=== PATIENT | male | born 1960 | race Two or more races ===

== ENCOUNTER 2024-12-07 13:07 | Day surgery (SDC) | payer MEDICARE, SELFPAY ==
[2024-12-05 14:29] VITALS: BMI 27.0
[2024-12-07 13:30] VITALS: BP 131/81; PULSE 58; RESP 17; TEMP 36.4; O2SAT 95
[2024-12-07] MEDS: LACTATED RINGERS 1000ML 1,000 ML 50 ML IV (13:39)
--- NOTE | 2024-12-07 13:39 | P.HP_ITS ---
History of Present Illness *Admission Date: 12/07/24 *Reason for visit:: Family history/history of colon polyps and present history of prostate canc *History of present illness: Mr. Andino is a 64-year-old gentleman who is here for surveillance colonoscopy. He does have a personal history of colon polyps and a family history of colon cancer (mother). He was more recently diagnosed with prostate cancer and is due for CyberKnife treatment. Medical oncology and radiation oncology recommended that he had the surveillance colonoscopy presently and would be due at 5 years of this year. The examination is deemed medically necessary for surveillance colonoscopy. The patient has been seen, interviewed and examined prior to the procedure by both myself and the anesthesia provider. [facility] Disclaimer: The information contained in this section may have been updated after the patient was seen, as this information can be updated by other users. Medical History (Updated 12/07/24 @ 13:51 by Scar Felipe II, MD) Arthropathy of left knee History of cataract Prostate cancer Gout HLD (hyperlipidemia) HTN (hypertension) Surgical History History of Achilles tendon repair History of colonoscopy Family History Other Cancer of kidney Colon cancer Family history of cancer Lung cancer Social History Smoking Status: Former smoker alcohol intake: current current occupational status: retired Travel in the last 8 weeks?: None Have you lived/traveled outside [place] in past 30 days?: No Contact w/someone who lives/traveled outside US past 30 days?: No Exposure to someone with infectious disease in past 14 days?: No Do you have a fever (greater than 100.4 F or 38 C)?: No Have you tested positive for COVID-19?: No Exposed to someone with COVID-19 in past 14 days?: No Do you have a sore throat?: No Do you have a cough?: No Do you have any weakness?: No Are you experiencing any nausea/vomitting?: No Do you have any diarrhea?: No Are you experiencing any unusual bleeding?: No Do you have any muscle aches/pain?: No Do you have any abdominal pain?: No Are you experiencing loss of taste or smell?: No Review of Systems Review of Systems Review of systems (narrative): Negative *Cardiovascular Comments: Negative *Gastrointestinal Comments: Negative *Genitourinary Comments: Negative *Musculoskeletal Comments: Negative *Neurologic Comments: Negative Meds Home Medications and Allergies Home Medications ?Medication ?Instructions ?Recorded ?Confirmed ?Type allopurinol 300 mg tablet 300 mg PO DAILY 12/05/24 12/07/24 History amlodipine 5 mg tablet 5 mg PO DAILY 12/05/24 12/07/24 History atorvastatin 10 mg tablet 10 mg PO DAILY 12/05/24 12/07/24 History bisoprolol 5 1 tab PO DAILY 12/05/24 12/07/24 History mg-hydrochlorothiazide 6.25 mg tablet multivitamin 1 tab PO DAILY 12/05/24 12/07/24 History New Prescriptions to Start Prescriptions: Allergies Allergy/AdvReac Type Severity Reaction Status Date / Time No Known Allergies Allergy Verified 12/07/24 13:28 Exam Data for Last 24 hours Vital signs and Labs for Last 24 Hours: Temp Pulse Resp BP Pulse Ox O2 Del Method 97.5 F L 58 L 17 131/81 95 Room Air 12/07/24 13:30 12/07/24 13:30 12/07/24 13:30 12/07/24 13:30 12/07/24 13:30 12/07/24 13:30 I & O for Last 24 hours: Intake & Output 12/04/24 12/05/24 12/06/24 12/07/24 23:59 23:59 23:59 23:59 Weight 205 lb *Routine HEENT Exam Head: Present normocephalic Eye: Present EOMI and PERRL ENT: Present mucous membranes moist *Routine Neck Exam Neck: Present supple *Routine Respiratory Exam Respiratory: Present CTA bilaterally *Routine Cardiovascular Exam Cardiovascular: Present RRR *Routine Abdominal Exam Abdominal: Present soft and normoactive bowel sounds; Absent tenderness *Routine Rectal Exam Rectal:: deferred *Routine Genitalia Exam Genitalia:: deferred *Routine Extremities Exam Extremities: Absent cyanosis, clubbing or edema *Routine Skin Exam Skin: Present warm; Absent rash *Routine Neurological Exam Neurological: Present alert and oriented X3 Assessment and Plan *Assessment and plan (1) Personal history of colon polyps, unspecified: Status: Acute Category: Medical Code(s): Z86.0100 - Personal history of colon polyps, unspecified (2) Family history of colon cancer in mother: Status: Acute Category: Medical Code(s): Z80.0 - Family history of malignant neoplasm of digestive organs Plan A/P: 1. Personal history of colon polyps (unspecified) and family history of colon cancer (mother) is the preprocedural diagnosis. The patient will be anesthetized/sedated using MAC sedation. The patient has been seen and examined. Cardiac and lung assessment prior to the examination is stable. Proceed with planned surveillance colonoscopy.
[2024-12-07 13:46] VITALS: O2SAT 98
--- NOTE | 2024-12-07 13:52 | HMH.PROCNOTE ---
[facility] Procedure Note Date: 12/07/24 Time: 14:07 Procedure Note:: Colonoscopy Procedure Report: Colonoscopy with cold snare polypectomy Endoscopist: Scar Felipe II, MD Referring physician: Jase Caraballo MD and Leeroy Luong MD, [address], [place] [address]/Daren Mehta MD, [address], [place] [address] Date of Procedure: December 07, 2024 Equipment: Olympus 190 variable stiffness pediatric colonoscope Sedation: MAC sedation Indication: Mr. Andino is a 64-year-old gentleman who is here for follow-up surveillance colonoscopy. The patient's mother had colon cancer at the age of 84. He does have a personal history of colon polyps. His last colonoscopy was approximately 5 years ago and was normal. He has had prior colonoscopies with polyps. He was recently diagnosed with prostate cancer and was told by medical and radiation oncology to go ahead and have his surveillance colonoscopy prior to treatment and he is due this year for surveillance. He reports no abdominal pain, weight loss, change in his bowel habits or rectal bleeding. He does have a long history of IBS with intermittent diarrhea. Procedure: Prior to the procedure, a history and physical exam was performed, and patient's medications and allergies were reviewed. The risks, benefits and alternatives of the sedation and procedure were discussed with the patient. All questions were answered and informed consent was obtained. The patient was brought to the procedure room. Patient identification and proposed procedure were verified by the physician and the nurse. The patient was placed in a left lateral decubitus position and the scope was passed under direct vision. Throughout the procedure, the patient's blood pressure, pulse, and oxygen saturations were monitored continuously. The colonoscopy was accomplished without difficulty. The patient tolerated the procedure well. Findings: On digital rectal examination there was normal rectal tone. There were no external hemorrhoids and there were external hemorrhoidal tags. The colonoscope was introduced through the anal canal to the rectum and advanced to the cecum. The ileocecal valve and appendiceal orifice were identified. The scope was advanced a short distance into the ileum which appeared grossly normal. The scope was then withdrawn into the colon. There were 2 polyps (ascending x 2 (4 and 5 mm)) which were both removed via cold snare polypectomy. The remaining cecum, ascending and transverse colon and mucosa were grossly normal. There were very mildly scattered diverticuli throughout the descending and sigmoid colon (LEFT colon). The rectum itself was normal. Upon retroflexion within the rectum there were grade 2 internal hemorrhoids. The preparation was excellent throughout with Georg[place] Preparation Score of 9. The cecal time was 12 minutes. Impression: 1. Diminutive colonic polyps x 2 2. Mild left-sided diverticulosis 3. Grade 2 internal hemorrhoids Plan: I will follow-up the polyp histology and recommend repeat surveillance colonoscopy again in 5 to 7 years. Those persons that constitute having a stronger family history of colorectal cancer are those with a first-degree relative (parent, sibling, or child) diagnosed with colon cancer when they were younger than 50, or if more than one first-degree relative is affected. It is in these persons, that we recommend surveillance colonoscopy every 5 years. Persons that have a first-degree family member greater than 60 years of age at the time of their diagnosis are not deemed to be at greater risk because most colon cancers are sporadic (environmental and other factors) and are not hereditary. Only about 5 to 10 percent of colon cancer is hereditary. I would encourage psyllium bulking fiber supplementation on a maintenance basis.
--- NOTE | 2024-12-07 13:57 | P.PNANES_ITS ---
[facility] Disclaimer: The information contained in this section may have been updated after the patient was seen, as this information can be updated by other users. Medical History (Updated 12/07/24 @ 13:51 by Scar Felipe II, MD) Arthropathy of left knee History of cataract Prostate cancer Gout HLD (hyperlipidemia) HTN (hypertension) Surgical History History of Achilles tendon repair History of colonoscopy Family History Other Cancer of kidney Colon cancer Family history of cancer Lung cancer Social History Smoking Status: Former smoker alcohol intake: current substance use type: denies use current occupational status: retired Travel in the last 8 weeks?: None [facility] Anesthesia Checklist Patient Identification Patient Identification: Arm Band and Verbal (Name & ) Structural Data Admitted From: Home Planned Operative Procedure/s: colonoscopy Consent for Planned Operative Procedure(s) Verified: Yes Verified Documents: Surgical Consent NPO Status Verified Time NPO: 00:00 Chart Verification Results Verified: None Additional verifications Anesthesia Reactions: No Airway Assessment Mallampati Score:: Class II C-Spine Mobility Assessed: Yes TMJ Mobility Assessed: No Dentition: Good Dentition Neurological Assessment Level of Consciousness: Awake, Alert and Appropriate Anesthesia Plan Anesthesia Plan: Verified ASA Class: II Anesthesia Type: MAC
[2024-12-07 14:11] VITALS: BP 91/60; PULSE 55; RESP 16; TEMP 36.4; O2SAT 97
[2024-12-07 14:21] VITALS: BP 92/58; PULSE 53; RESP 16; O2SAT 97
[2024-12-07 14:31] VITALS: BP 106/76; PULSE 55; RESP 16; O2SAT 98
[2024-12-07 14:40] VITALS: BP 120/76; PULSE 61; RESP 16; O2SAT 98
== END 2024-12-07 14:46 | disposition home or self-care (01) ==
PROVIDERS: PCP Internal Medicine; Visit Provider Internal Medicine Gastroenterology
PROC: 0DJD8ZZ Inspection of Lower Intestinal Tract, Via Natural or Artificial Opening Endoscopic (ICD-10-PCS; CPT 45378; principal; 2024-12-07 15:00)
DX: Z12.11 Encounter for screening for malignant neoplasm of colon (principal); Z86.0100 Personal history of colon polyps, unspecified; Z80.0 Family history of malignant neoplasm of digestive organs; Z85.46 Personal history of malignant neoplasm of prostate; D12.2 Benign neoplasm of ascending colon; K57.30 Diverticulosis of large intestine without perforation or abscess without bleeding; K64.1 Second degree hemorrhoids; Z87.891 Personal history of nicotine dependence
CPT/HCPCS: 45385; J7120